=== PATIENT | male | born 1950 | race Caucasian/White ===

== ENCOUNTER 2024-05-01 08:35 | Outpatient (CLI) | payer MEDICARE ==
[2024-05-01] MEDS ORDERED: Iopamidol 370 76% 100 ML VIAL ONE (14:50)
== END 2024-05-01 08:36 | disposition home or self-care (01) ==
LOC: CT 08:35
PROVIDERS: ATTEND Otolaryngology
DX: C43.21 Malignant melanoma of right ear and external auricular canal (principal); I70.0 Atherosclerosis of aorta; Z98.1 Arthrodesis status; Z85.820 Personal history of malignant melanoma of skin
CPT/HCPCS: 70491